=== PATIENT | male | born 1950 | race Caucasian/White ===

== ENCOUNTER → 2017-03-27 | Outpatient (CLI) | payer OTHER, MEDICARE ==
--- NOTE | 2017-03-27 11:14 | Diagnostic Imaging Report ---
PROCEDURE: CT abdomen without contrast. TECHNIQUE: Multiple contiguous axial images were obtained through the abdomen without the use of intravenous contrast. INDICATION: History of pancreatitis. Left adrenal mass. COMPARISON: No prior similar studies are available for comparison. FINDINGS: The lung bases appear clear. The liver, gallbladder, spleen, and left adrenal gland appear unremarkable. The right adrenal gland demonstrates minimal nonspecific thickening in its proximal aspect. The pancreas demonstrates minimal stranding around it which could relate to acute pancreatitis or sequela of prior peripancreatic inflammation. There is also left perinephric stranding and mild left hydronephrosis. The proximal left ureter seen within the abdomen [id number] on this exam appears unremarkable. No stones in the kidneys or within the proximal ureters. The abdominal aorta is normal in caliber. No significant free fluid or fluid collection in the abdomen is seen. IMPRESSION: 1. There is minimal stranding around the pancreas which could correlate with acute mild pancreatitis or sequela of prior peripancreatic inflammation. 2. Mild left perinephric stranding and mild left hydronephrosis. No stones in the left kidney or in the proximal left ureter. If there is concern for a distal ureteric stone, then a CT scan of the pelvis could be performed. Correlate clinically for possible left pyelonephritis. 3. The report was faxed to the office of Janeth Herman APRN, by [email or web address]@11:[email or web address] AM. Dictated by: Dictated on workstation # [id number]
--- NOTE | 2017-03-27 12:01 | Diagnostic Imaging Report ---
PROCEDURE: US Abdomen, limited. TECHNIQUE: Multiple realtime grayscale images were obtained over the abdomen in various projections. INDICATION: History of pancreatitis. Left adrenal mass. Findings: The pancreas is largely obscured. The liver is fairly homogeneous with no focal lesion. There is hepatopetal flow in the portal vein seen. The CBD is obscured by bowel gas. The gallbladder demonstrates no stones or wall thickening. No pericholecystic fluid. Sonographic Ross sign is reportedly negative. The right kidney is 10.2 CM in length with no hydronephrosis or a focal lesion. No fluid collection in the upper right abdomen seen. IMPRESSION: Unremarkable exam. Dictated by: Dictated on workstation # [id number]
== END ==
LOC: RAD 09:43
PROVIDERS: ATTEND Nurse Practitioner Family
DX: E27.9 Disorder of adrenal gland, unspecified (principal); Z87.19 Personal history of other diseases of the digestive system
CPT/HCPCS: 74150; 76705

== ENCOUNTER → 2017-05-21 | Outpatient (CLI) | payer OTHER, MEDICARE ==
--- NOTE | 2017-05-21 19:02 | Diagnostic Imaging Report ---
EXAMINATION: PET-CT TECHNIQUE: Serum glucose level at the time of the study is: 94 mg/dL. 13.1 mCi of FDG was administered intravenously followed by obtaining PET images with corresponding noncontrast CT scan images. The CT scan was performed for anatomic correlation and attenuation correction and was not performed according to the diagnostic protocol of the areas covered. The scan was performed from the head to mid thighs. INDICATION: Lung mass. Adrenal mass. History of pancreatitis. FINDINGS: There is symmetric FDG uptake seen in the brain. Motion artifact is seen. There is no significant hypermetabolic activity in the upper aspect of the neck. In the lower neck, there are hypermetabolic lesions seen with a discrete significant hypermetabolic lesion with maximum SUV of 15 noted in the left thyroid lobe with corresponding nodule measuring 2.2 cm. There is prominent FDG uptake also at the level of the vocal cords, indeterminate. There is a right supraclavicular lymph node with avid FDG uptake measuring 1.7 cm seen in medially with maximum SUV of 7. Along the anteromedial aspect of the left first rib, there is a hypermetabolic mass seen with maximum SUV of 6 with partially lytic component. There is another hypermetabolic mass with associated lytic component in the upper aspect of the sternum with maximum SUV of 7. There is heterogeneous mass in the right perihilar region with central necrosis seen inseparable from the right hilar lymph node stations and the infracarinal and right paratracheal karolina stations, probably confluent malignant mass with central necrosis. There is intense hypermetabolism in the right lung base also. There are multiple foci of cardiac intense foci of increased activity which are concerning for metastasis given the lack of typical morphology seen with physiologic uptake. There is also prominent FDG uptake in the diaphragm lining bilaterally with soft tissue thickening concerning for malignancy. There is an intensely hypermetabolic omental mass in the left flank with maximum SUV of 11 seen measuring 3.6 cm and moderate hypermetabolism in 2.1 cm left para-aortic lymph node below the renal vessels suggestive of malignancy. Also, bilateral enlargement of the adrenal glands with peripheral hypermetabolism and likely central necrosis is suggestive of malignancy. Right hepatic lobe hypodense lesion with intense hypermetabolism is also seen with measurement of 2 cm suggestive of metastasis. An anterior omental nodule in the subxiphoid region measuring 2 cm is also suggestive of metastasis. There are multiple intensely hypermetabolic foci within the pancreas concerning for masses. Although based on the history of pancreatitis, this could potentially relate to pancreatitis. There is also a pathologic fracture in the lesser trochanter with hypermetabolic mass seen measuring 2.7 cm. Focus of hypermetabolism along the anterior inferior aspect of the left scapula could also be related to a muscular metastasis. IMPRESSION: 1. Widespread hypermetabolic areas of activity involving the left thyroid lobe, right supraclavicular nodes, multiple bone sites, the right lung, right hilum and mediastinum, the heart, the liver, the diaphragm, the adrenal glands, and the omentum and left para-aortic lymph node station suggestive of metastatic cancer, with perhaps a lung primary. 2. Multiple intensely hypermetabolic lesions within the pancreas could potentially relate to malignancy or is perhaps explained by the recent pancreatitis diagnosis. 3. The most accessible target for ultrasound-guided biopsy would be from the right supraclavicular lymph node. Dictated by: Dictated on workstation # [id number]
== END ==
LOC: RAD 08:56
PROVIDERS: ATTEND Nurse Practitioner Family
DX: R91.8 Other nonspecific abnormal finding of lung field (principal); E27.8 Other specified disorders of adrenal gland; K86.89 Other specified diseases of pancreas; R93.7 Abnormal findings on diagnostic imaging of other parts of musculoskeletal system; Z87.19 Personal history of other diseases of the digestive system

== ENCOUNTER → 2017-05-28 | Outpatient (CLI) | payer OTHER, MEDICARE ==
[~2017-05-28] VITALS: Ht 167.6 cm; Wt 59.0 kg
[~2017-05-28] MED LIST: LIDOCAINE 1% INJ 20 ML (XYLOCAINE) VIAL INJ ONE; LIDOCAINE 1% INJ 50 ML (XYLOCAINE) VIAL ONE
[2017-05-28 14:15] VITALS: BP 120/67
[2017-05-28 15:00] VITALS: BP 124/71
--- NOTE | 2017-05-28 16:05 | Diagnostic Imaging Report ---
EXAMINATION: US-guided core biopsy-RT SUPRACLAVICULAR NODE INDICATION: RT SUPRACLAVICULAR NODE. Current history and physical and other medical records are reviewed prior to the procedure. CONSENT: Informed consent was obtained from the patient. The risks, benefits, potential complications and alternatives were reviewed and all questions answered to the patient's satisfaction. The patient's vital signs, cardiac rhythm, and pulse oximetry with observed throughout the procedure by qualified nursing personnel. Sedation/medications: none. FINDINGS: Right SUPRACLAVICULAR NODE. PROCEDURE: After maximal sterile barrier technique preparation and draping, 1% lidocaine was utilized for local anesthesia. With the patient in supine position, and via anterior approach, a 17-gauge guide needle is introduced into the right supraclavicular enlarged lymph nodes under live ultrasound guidance. After confirming adequate positioning with saved ultrasound images, multiple 18 gauge core biopsy specimens were obtained. The patient tolerated the procedure well with no immediate complications. IMPRESSION: Successful US-guided core biopsy of right supraclavicular enlarged lymph node. Dictated by: Dictated on workstation # [id number]
== END ==
LOC: RAD 14:02
PROVIDERS: ATTEND Internal Medicine Critical Care Medicine
DX: R59.0 Localized enlarged lymph nodes (principal)
CPT/HCPCS: 76942